=== PATIENT | male | born 1995 | race Caucasian/White ===

== ENCOUNTER 2019-02-24 00:47 | Emergency (ER) | payer OTHER ==
[~2019-02-24] VITALS: Ht 177.8 cm; Wt 77.3 kg
[2019-02-24] MEDS ORDERED: NS 500 ML IV ONE (02:15)
[2019-02-24] MEDS ORDERED: ISOVUE-370 76% 100ML VIAL (Q9967) As Ordered ONE (02:19)
[2019-02-24 02:29] LABS: BASO % 0.3 % (0.0-1.0); EOS # 0.1 10^3/uL (0.0-0.50); EOS % 0.9 % (0.0-3.0); HEMATOCRIT 45.1 % (42.0-52.0); HEMOGLOBIN 15.9 g/dl (13.5-17.5); LYMPH # 2.3 10^3/uL (1.5-6.5); LYMPH % 21.3 % (24.0-44.0); MEAN CORPUSCULAR HEMOGLOBIN 33.1 pg (27.0-33.0); MEAN CORPUSCULAR HGB CONC 35.3 g/dl (32.0-36.5); MONO # 0.9 10^3/uL (0.0-0.8); MONO % 8.1 % (0.0-5.0); NEUTROPHILS # 7.4 10^3/uL (1.8-7.7); NEUTROPHILS % 69.2 % (36.0-66.0); PLATELET COUNT, AUTOMATED 199 10^3/uL (150-450); WHITE BLOOD COUNT 10.7 10^3/uL (4.0-10.0)
[2019-02-24 02:38] LABS: INR 1.04; PROTHROMBIN TIME 13.3 SECONDS (11.8-14.0)
[2019-02-24 02:39] LABS: PARTIAL THROMBOPLASTIN TIME 27.1 SECONDS (25.0-38.4)
[2019-02-24 02:57] LABS: ALBUMIN 3.8 GM/DL (3.2-5.2); ALT/SGPT 15 U/L (12-78); BILIRUBIN,DIRECT 0.1 MG/DL (0.0-0.2); BILIRUBIN,TOTAL 0.6 MG/DL (0.2-1.0); BLOOD UREA NITROGEN 23 MG/DL (7-18); CALCIUM LEVEL 9.1 MG/DL (8.5-10.1); CARBON DIOXIDE LEVEL 28 MEQ/L (21-32); CHLORIDE LEVEL 107 MEQ/L (98-107); CREATININE FOR GFR 1.52 MG/DL (0.70-1.30); GLOMERULAR FILTRATION RATE > 60.0 (>60); GLUCOSE, FASTING 86 MG/DL (70-100); POTASSIUM SERUM 3.9 MEQ/L (3.5-5.1); SODIUM LEVEL 141 MEQ/L (136-145); TOTAL PROTEIN 7.1 GM/DL (6.4-8.2)
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
[2019-02-24] MEDS ORDERED: KETOROLAC 30 MG/ML VIAL (J1885) IV ONE (03:15)
[2019-02-24 03:32] VITALS: BP 128/80
== END 2019-02-24 03:35 | disposition home or self-care (01) ==
LOC: M ED 00:47
DX: S76.011A Strain of muscle, fascia and tendon of right hip, initial encounter (principal); V29.88XA Motorcycle rider (driver) (passenger) injured in other specified transport accidents, initial encounter; Y92.410 Unspecified street and highway as the place of occurrence of the external cause; Y93.9 Activity, unspecified; K76.0 Fatty (change of) liver, not elsewhere classified; M41.9 Scoliosis, unspecified
CPT/HCPCS: 74177; 80048; 80076; 85025; 85610; 85730; 96361; 96374; 99284; J1885; Q9967

== ENCOUNTER 2019-08-03 15:01 | Emergency (ER) | payer OTHER ==
[~2019-08-03] VITALS: Ht 177.8 cm; Wt 78.7 kg
[2019-08-03] MEDS ORDERED: KETOROLAC 30 MG/ML VIAL (J1885) IM ONE (16:15)
[2019-08-03] MEDS ORDERED: CYCLOBENZAPRINE 5MG TABLET PO ONE (16:15)
[2019-08-03 17:23] VITALS: BP 120/78
[2019-08-03] MEDS ORDERED: PRED10TA2 PO (17:43)
[2019-08-03] MEDS ORDERED: CYCL5TAB PO (17:44)
--- NOTE | 2019-08-04 06:16 | REP ---
CT LUMBAR SPINE WITHOUT CONTRAST: HISTORY: Midline lumbar pain. Comparison CT abdomen images February 24, 2019. FINDINGS: Preliminary digital nurse advocate radiograph demonstrates a levoconvex curve in the lumbar spine which is unchanged. Lumbar vertebral body heights are preserved. Alignment is normal. There are bilateral pars interarticularis defects with some reactive facet hypertrophy changes again noted at L5 . There is no evidence of spondylolisthesis. These findings are unchanged. Pedicles and posterior elements are otherwise intact. No bony foraminal narrowing is seen. Sacrum and SI joints appear intact. No paravertebral soft tissue abnormality is seen. IMPRESSION: Mild levoconvex curvature. Bilateral spondylolysis at L5 without spondylolisthesis. Minimal hypertrophic facet changes at L5-S1 unchanged from February 24, 2019. Electronically Signed by Todd Thompson MD 08/04/2019 08:45 A
== END 2019-08-03 18:08 | disposition home or self-care (01) ==
LOC: M ED 15:01
DX: S39.012A Strain of muscle, fascia and tendon of lower back, initial encounter (principal); M43.06 Spondylolysis, lumbar region; M62.830 Muscle spasm of back; X58.XXXA Exposure to other specified factors, initial encounter; Y92.9 Unspecified place or not applicable; Y93.9 Activity, unspecified; Y99.9 Unspecified external cause status
CPT/HCPCS: 72131; 96372; 99283; J1885